=== PATIENT | male | born 1955 | race Caucasian/White ===

== ENCOUNTER 2018-08-01 14:21 | Outpatient (CLI) | payer OTHER ==
[~2018-08-01 14:21] MED LIST: ALLO PO; ENTOCORT EC3 MG PO; NEURONTIN300 MG PO; PERCOCET 5-3251 EACH PO; POLY119PG PO; SYNTHROID137 MCG PO
== END 2018-08-01 14:55 | disposition home or self-care (01) ==
LOC: MRI 14:21
DX: M25.562 Pain in left knee (principal)
CPT/HCPCS: 73718

== ENCOUNTER 2018-09-30 06:29 | Day surgery (SDC) | payer OTHER ==
[~2018-09-30 06:29] MED LIST changes: +AMBIEN5 MG PO
[2018-09-30] MEDS ORDERED: PERCOCET 5-3251 EACH PO (11:35)
[2018-09-30] MEDS ORDERED: NABUMETONE750 MG PO (11:35)
== END 2018-09-30 15:10 | disposition home or self-care (01) ==
LOC: CIR.AMB 06:29
DX: M23.322 Other meniscus derangements, posterior horn of medial meniscus, left knee (principal); M22.42 Chondromalacia patellae, left knee; M65.862 Other synovitis and tenosynovitis, left lower leg; M13.812 Other specified arthritis, left shoulder

== ENCOUNTER 2020-04-11 14:50 | Outpatient (CLI) | payer OTHER ==
[~2020-04-11 14:50] MED LIST changes: +NABUMETONE750 MG PO
== END 2020-04-11 15:05 | disposition home or self-care (01) ==
LOC: RAD 14:50
PROVIDERS: ATTEND General Practice
DX: M25.551 Pain in right hip (principal)

== ENCOUNTER 2022-11-14 10:24 | Outpatient (CLI) | payer OTHER | END 2022-11-14 11:00 | disposition home or self-care (01) | LOC: MRI 10:24 | DX: M53.3 Sacrococcygeal disorders, not elsewhere classified (principal) | CPT/HCPCS: 72195 ==